=== PATIENT | male | born 1995 ===

== ENCOUNTER → 2020-04-13 12:51 | Outpatient (CLI) | payer OTHER | END | disposition home or self-care (01) | LOC: LAB 12:51 | PROVIDERS: ATTEND Otolaryngology | DX: R53.83 Other fatigue (principal); Z03.818 Encounter for observation for suspected exposure to other biological agents ruled out ==

== ENCOUNTER 2021-01-21 09:14 | Outpatient (CLI) | payer OTHER | END 2021-01-21 15:00 | disposition home or self-care (01) | LOC: LAB 09:14 | PROVIDERS: ATTEND Otolaryngology | DX: Z03.818 Encounter for observation for suspected exposure to other biological agents ruled out (principal) ==

== ENCOUNTER 2022-12-18 10:30 | Outpatient (CLI) | payer OTHER | END 2022-12-18 10:40 | disposition home or self-care (01) | LOC: PPH VACUNA 10:30 | PROVIDERS: ATTEND Emergency Medicine Pediatric Emergency Medicine | DX: Z23 Encounter for immunization (principal) ==